=== PATIENT | female | born 1955 | race Caucasian/White ===

== ENCOUNTER → 2021-11-28 | Outpatient (CLI) | payer MEDICARE | END | disposition home or self-care (01) | LOC: RAH 14:50 | PROVIDERS: ATTEND Urology Pediatric Urology | DX: N13.2 Hydronephrosis with renal and ureteral calculous obstruction (principal); K57.30 Diverticulosis of large intestine without perforation or abscess without bleeding | CPT/HCPCS: 74176 ==

== ENCOUNTER 2021-12-26 07:11 | Day surgery (SDC) | payer MEDICARE ==
[2021-12-21 12:54] LABS: BASOPHILS % (AUTO) 0.8 % (0.0-5.0); EOSINOPHILS % (AUTO) 1.5 % (0.0-8.0); MEAN CORPUSCULAR HEMOGLOBIN 29.8 pg (27.0-33.0); MEAN CORPUSCULAR HGB CONC 32.3 g/dL (32.0-36.0); MEAN CORPUSCULAR VOLUME 92.3 fL (79-99); MONOCYTES % (AUTO) 8.5 % (3.0-13.0); NEUTROPHILS % (AUTO) 61.8 % (40.0-77.0); PLATELET COUNT (AUTO) 312 K/uL (130-400); RED BLOOD CELL COUNT(AUTO) 4.66 MIL/uL (4.00-5.50); RED CELL DISTRIBUTION WIDTH 13.8 % (11.0-15.5); WHITE BLOOD COUNT (AUTO) 10.8 K/uL (4.8-10.8)
[2021-12-21 13:05] LABS: INR 0.96 (0.85-1.15); PROTHROMBIN TIME 10.5 SEC (9.6-11.6)
[2021-12-21 13:07] LABS: PARTIAL THROMBOPLASTIN TIME 25.6 SEC (26.3-35.5)
[2021-12-21 13:15] LABS: ALBUMIN 3.7 g/dL (3.5-5.0); CREATININE 1.1 mg/dL (0.5-1.5); TOTAL PROTEIN, SERUM 7.1 g/dL (6.0-8.3)
[2021-12-21 13:28] LABS: APPEARANCE,URINE CLEAR (CLEAR); BILIRUBIN,URINE NEGATIVE (NEGATIVE); COLOR,URINE LIGHT-YELLOW (YELLOW); GLUCOSE, URINE (UA) NEGATIVE (NEGATIVE); KETONES,URINE NEGATIVE (NEGATIVE); LEUKOCYTE ESTERASE ,URINE NEGATIVE Leu/uL (NEGATIVE); NITRATE,URINE NEGATIVE (NEGATIVE); OCCULT BLOOD,URINE NEGATIVE (NEGATIVE); PH,URINE 7.5 (5.0-8.0); PROTEIN,URINE NEGATIVE (NEGATIVE); UROBILINOGEN,URINE 0.2 mg/dL (0.2-1.0)
[2021-12-25 10:09] VITALS: BP 131/73
[2021-12-26] VITALS (19 sets, daily range): BP systolic 108–140; BP diastolic 49–75
[~2021-12-26 07:11] MED LIST: AEC81 PO; AMLO-513 PO; ATOR10TA69 PO; CALC-1125 PO; CARB-283 OP; CLON0.2T PO; DULA1.5P SQ; DULO60CA64 PO; FOLI0.8T3 PO; HYDR100T27 PO; HYDR25TA PO; LANS30CA55 PO; METF-444 PO; METO50TA18 PO; MULT-1203 PO; POTA-277 PO; SENN-107 PO; [UNRECOGNIZED DRUG - CODE] PO; fiber PO; vitamin b12 PO
[2021-12-26] MEDS ORDERED: 0.9%NACL 1000ML 1,000 ML IV ONE (08:33)
[2021-12-26] MEDS ORDERED: IOHEXOL 350 MG/ML 100ML INFUS..BTL IV ONE ×2 (10:28→13:00)
[2021-12-26] MEDS ORDERED: ALBUTEROL INHALER 90MCG/INH IH SCH (11:30)
[2021-12-26] MEDS: CEFAZOLIN SODIUM 1 GM VIAL ONE ×2 (12:12→12:30)
[2021-12-26] MEDS ORDERED: SUCCINYLCHOLINE 200MG/10ML SYR ONE (12:28)
[2021-12-26] MEDS ORDERED: GLYCOPYRROLATE 1 MG/5 ML SYRINGE ONE (12:28)
[2021-12-26] MEDS ORDERED: PROPOFOL 10 MG/ML 20ML VIAL IV ONE (12:28)
[2021-12-26] MEDS ORDERED: ONDANSETRON 4MG INJ ONE (12:28)
[2021-12-26] MEDS ORDERED: DEXAMETHASONE SOD PHOSPHATE 10MG/ML 1ML VIAL ONE ×2 (12:28→13:06)
[2021-12-26] MEDS ORDERED: ROCURONIUM 10MG/1ML SYR 10 MG/ML ML ONE ×2 (12:29→13:55)
[2021-12-26] MEDS ORDERED: FENTANYL CITRATE PF 50 MCG/1 ML 2ML VIAL ONE (12:29)
[2021-12-26] MEDS ORDERED: PHENYLEPHRINE HCL 10 MG/ML 1ML VIAL IV ONE (13:03)
[2021-12-26] MEDS ORDERED: METOCLOPRAMIDE 10 MG/2 ML VIAL ONE (13:06)
[2021-12-26] MEDS ORDERED: NEOSTIGMINE 5MG/5ML SYR IV ONE (14:26)
== END 2021-12-26 16:45 | disposition home or self-care (01) ==
LOC: DAH 07:11
PROVIDERS: ATTEND Urology Pediatric Urology
DX: N13.2 Hydronephrosis with renal and ureteral calculous obstruction (principal); I10 Essential (primary) hypertension; E11.9 Type 2 diabetes mellitus without complications; F32.A Depression, unspecified; F17.200 Nicotine dependence, unspecified, uncomplicated; Z90.710 Acquired absence of both cervix and uterus; Z98.890 Other specified postprocedural states; Z98.49 Cataract extraction status, unspecified eye; Z82.49 Family history of ischemic heart disease and other diseases of the circulatory system; Z79.01 Long term (current) use of anticoagulants; Z79.84 Long term (current) use of oral hypoglycemic drugs
CPT/HCPCS: 71045; 87426; 80053; 85025; 85610; 85730; 87088 ×2; 81003; 36415; 93005; 52356; 74420; 82948 ×2; A6260; A4663; J7120; C2617; C1769 ×2; C1758; J3010; J0690; J0330; J3490; J1100 ×2; J2710; J7030; J2704; J2405; J2765; J2370; Q9967 ×2; A4358; A4215; A4223; A4222; A4221; A4600

== ENCOUNTER → 2024-05-05 | Outpatient (CLI) | payer MEDICARE ==
[~2024-05-05] MED LIST changes: +DIPH25TA45 PO; +HYDR100T15 PO; -HYDR100T27 PO; -[UNRECOGNIZED DRUG - CODE] PO
== END | disposition home or self-care (01) ==
LOC: LAB 11:02
PROVIDERS: ATTEND Internal Medicine Cardiovascular Disease
DX: I1A.0 Resistant hypertension (principal)
CPT/HCPCS: 36415; 82088

== ENCOUNTER → 2024-05-29 | Outpatient (CLI) | payer MEDICARE ==
--- NOTE | 2024-06-02 17:32 | HMCSR ---
APPROVED REPORT EXAM: Two-dimensional and M-mode echocardiogram with Doppler and color Doppler. INDICATION ICD: Resistent hypertension, R55 2D Dimensions RVDd2.8 cmLVEF(%)48.7 (>50%)LVED Vol(simp.)88.3 mL IVSd0.9 (0.7-1.1cm)FS(%)24 %LVES Vol(simp.)36.0 mL LVDd4.1 (3.8-5.6cm)LA (2D)3.6 (1.6-4.0cm)LVEF(%, simp.)59 % PWd1.0 (0.7-1.1cm)Ao Root(2D)3.0 (2.0-3.7cm)LA ESV INDEX (BP)21.74 mL/m2 IVSs0.9 cmLVOT diam1.9 (1.8-2.4cm) LVDs3.1 (2.5-4.0cm)IVC diam1.6 cm PWs1.0 cm M-Mode Dimensions EPSS0.7 cm LA (MM)3.5 (1.6-4.0cm) Ao Root(MM)2.9 (2.0-3.7cm) Aortic Valve AoV Vmax1.5 m/Devendra Peak GR8.7 mmHgLVOT Vmax1.6 m/s AoV VTI0.3 mAo Mean GR4.3 mmHgLVOT VTI0.28 m CRISTIANO (VMAX)2.8 cm2AVA (VTI) 2.8 cm2 Mitral Valve MV E Vmax59.9 cm/sDECEL Epuq634 msMV Peak GR3 mmHg MV A Vmax77.3 cm/sP 1/2 T63 msMV Mean GR1 mmHg E/A ratio0.8MVA (PHT)3.5 cm2 TDI E/E' Medial8.6E/E' Lateral8.6 Medial E' Peak V7.00 cm/sLateral E' Peak V7.00 cm/s Pulmonary Valve PV Vmax0.9 m/s Tricuspid Valve RAP (EST) 3 mmHgRVSP3.0 mmHg Left Ventricle The left ventricle is normal size. There is normal LV segmental wall motion. There is normal left inna tricular wall thickness. LVEF is 60-65%. The left ventricular diastolic function is normal. Right Ventricle The right ventricle is normal size. The right ventricular systolic function is normal. Atria The left atrium size is normal. The right atrium size is normal. Aortic Valve The aortic valve is normal in structure. No aortic regurgitation is present. There is no aortic valvu lar stenosis. Mitral Valve The mitral valve is normal in structure. There is no mitral valve regurgitation noted. There is no mi tral valve stenosis. Tricuspid Valve The tricuspid valve is normal in structure. There is no tricuspid valve regurgitation noted. Pulmonic Valve The pulmonary valve is normal in structure. There is no pulmonic valvular regurgitation. Great Vessels The aortic root is normal in size. The IVC is normal in size and collapses >50% with inspiration. Pericardium There is no pericardial effusion. Other Information Quality : Adequate Conclusion LVEF is 60-65%. The left ventricular diastolic function is normal.
== END | disposition home or self-care (01) ==
LOC: SHCH 13:06
PROVIDERS: ATTEND Internal Medicine Cardiovascular Disease
DX: I1A.0 Resistant hypertension (principal); R55 Syncope and collapse
CPT/HCPCS: 93306

== ENCOUNTER → 2024-07-27 | Outpatient (CLI) | payer MEDICARE ==
--- NOTE | 2024-07-28 08:26 | HMCSR ---
APPROVED REPORT Indications I1a.0 Renal Artery Doppler Proximal (R) 75.7/27.2 cm/secOrigin (L) 125.4/36.7 cm/sec Mid (R) 81.4/21.8 cm/secProximal (L) 71.0/16.6 cm/sec Distal (R) 57.3/17.9 cm/secMid (L) 37.9/10.3 cm/sec Renal/Aorta Ratio (R) 1.12Distal (L) 78.1/23.7 cm/sec Resistive Index (R) 0.62Renal Aorta Ratio (L) 1.72 Accessory A. (R) 69.2/26.5 cm/secResistive Index (L) 0.78 Accessory A. (L) 51.5/11.5 cm/sec Renal Measurements Kidney Size (R) 10.5x5.2x4.9 cmKidney Size (L)10.5x5.2x5.8 cm Aortic Doppler VelocityWaveform Proximal Aorta 72.6 cm/sec Technologist Impression This was a technically difficult and therefore limited exam due to the presence of bowel gas and abdo carmen movement with respiration. Based on the renal/aortic ratio there is no evidence of significant stenosis in the bilateral renal arteries. Incidental finding: LT. Kidney multiple stones seen. Conclusion As above. Conclusion As above.
== END | disposition home or self-care (01) ==
LOC: SHCH 08:04
PROVIDERS: ATTEND Internal Medicine Cardiovascular Disease
DX: I1A.0 Resistant hypertension (principal); N20.0 Calculus of kidney
CPT/HCPCS: 93975